=== PATIENT | male | born 1945 | race African-American/Black ===

== ENCOUNTER 2017-06-06 22:05 | Inpatient (IN) | payer OTHER ==
[2017-06-06 22:28] VITALS: BMI 24.1
--- NOTE | 2017-06-06 22:28 | HP ---
COWS - Scale Resting Pulse: 0= [place] 80 or Below Sweatin= Chills/Flushing Restless Observation: 5= Unable to Sit Still Pupil Size: 0= Normal to Room Light Bone or Joint Aches: 4=Acute Joint/Muscle Pain Runny Nose/ Eye Tearin= Nasal Congestion GI Upset > 30mins: 1= Stomach Cramp Tremor Observation: 2= Slight Tremor Visible Yawning Observation: 0= None Anxiety or Irritability: 2=Irritable/Anxious Goose Flesh Skin: 0=Smooth Skin COWS Score: 16 CIWA Score - CIWA Score Nausea/Vomitin Muscle Tremors: 4-Moderate,w/Arms Extend Anxiety: 4-Mod. Anxious/Guarded Agitation: 4-Moderately Restless Paroxysmal Sweats: 1-Minimal Palms Moist Orientation: 1-Uncertain about Date Tacttile Disturbances: 0-None Auditory Disturbances: 0-None Visual Disturbances: 0-None Headache: 0-None Present CIWA-Ar Total Score: 17 Admission ROS [facility] - HPI Chief Complaint: C/O WITHDRAWAL SX'S FROM HEROIN AND ALCOHOL. SEEKING DETOX TXMENT Allergies/Adverse Reactions: Allergies Allergy/AdvReac Type Severity Reaction Status Date / Time No Known Allergies Allergy Verified 06/07/17 00:14 History of Present Illness: 71 Y.O. MALE WITH LONG HX/O OPIOID AND ALCOHOL DEPENDENCE ADMITTED TO DETOX. CLIENT IS KNOWN TO THIS PROGRAM. LAST HERE APPROX 2 YEARS AGO. SELF REFERRED. DENIES LEGAL ISSUES. REPORTS LONGEST CLEAN TIE 2 YEARS. Exam Limitations: Other (AMBULATES WITH CANE 2/2 R KNEE PAIN) - Ebola screening Have you traveled outside of the country in the last 21 days: No Have you had contact with anyone from an Ebola affected area: No Have you been sick,other than usual withdrawal symptoms: No Do you have a fever: No - Review of Systems Constitutional: Chills, Loss of Appetite, Malaise, Night Sweats, Changes in sleep EENT: reports: Dental Problems (MISSING TEETH) Respiratory: reports: No Symptoms reported Cardiac: reports: No Symptoms Reported GI: reports: Diarrhea, Nausea, Poor Appetite, Abdominal cramping : reports: No Symptoms Reported Musculoskeletal: reports: Joint Pain (L EFT KNEE), Muscle Pain Integumentary: reports: Other (C/O SKIN ABRASION/TEAR TO PENIS FROM ZIPPER) Neuro: reports: No Symptoms reported Endocrine: reports: No Symptoms Reported Hematology: reports: No Symptoms Reported Psychiatric: reports: Anxious, Depressed (DENIES SI/HI) Other Systems: Reviewed and Negative Patient History - Patient Medical History Hx Anemia: No Hx Asthma: No Hx Chronic Obstructive Pulmonary Disease (COPD): No Hx Cancer: No Hx Cardiac Disorders: No Hx Congestive Heart Failure: No Hx Hypertension: No Hx Hypercholesterolemia: No Hx Pacemaker: No HX Cerebrovascular Accident: No Hx Seizures: No Hx Dementia: No Hx Diabetes: No Hx Gastrointestinal Disorders: No Hx Liver Disease: No Hx Genitourinary Disorders: No Hx Sexually Transmitted Disorders: No Hx Renal Disease (ESRD): No Hx Thyroid Disease: No Hx Human Immunodeficiency Virus (HIV): No Hx Hepatitis C: Yes (TX'ED) Hx Depression: No Hx Suicide Attempt: No Hx Bipolar Disorder: No Hx Schizophrenia: No Other Medical History: R KNEE PAIN - Patient Surgical History Past Surgical History: Yes Hx Neurologic Surgery: No Hx Cataract Extraction: No Hx Cardiac Surgery: No Hx Lung Surgery: No Hx Breast Surgery: No Hx Breast Biopsy: No Hx Abdominal Surgery: No Hx Appendectomy: No Hx Cholecystectomy: No Hx Genitourinary Surgery: No Hx Section: No Hx Orthopedic Surgery: No Other Surgical History: Pt had R inguinal hernia repair in 2008, Sx of chest for infection in 2009. Anesthesia Reaction: No - PPD History Previous Implant?: Yes Documented Results: Negative w/o proof Implanted On Prior [facility] Admission?: No Results: positive PPD to be Administered?: No - Smoking Cessation Smoking history: Current every day smoker Have you smoked in the past 12 months: Yes Aproximately how many cigarettes per day: 20 Cigars Per Day: 0 Hx Chewing Tobacco Use: No Initiated information on smoking cessation: Yes 'Breaking Loose' booklet given: 06/06/17 - Substance & Tx. History Hx Alcohol Use: Yes Hx Substance Use: Yes Substance Use Type: Alcohol, Cocaine, Heroin Hx Substance Use Treatment: Yes ([facility]) - Substances Abused HEROIN Route: Inhalation Frequency: Daily Amount used: 10 BAGS Age of first use: 15 Date of Last Use: 06/06/17 COCAINE Route: Smoking Frequency: 3-6 times per week Amount used: 1/2 GRM Age of first use: 31 Date of Last Use: 06/04/17 VODKA Route: Oral Frequency: 3-6 times per week Amount used: 1/2 PINT Age of first use: 15 Date of Last Use: 06/05/17 Family Disease History - Family Disease History Family History: Unremarkable Admission Physical Exam [facility] - Physical General Appearance: Yes: Appropriately Dressed, Disheveled, Mild Distress, Tremorous, Anxious, Other (SOLIED CLOTHING) HEENTM: Yes: EOMI, Normocephalic, MARGARITA, Pharynx Normal, Nasal Congestion, Other (MISSING TEETH) Respiratory: Yes: Chest Non-Tender, Lungs Clear, Decreased Breath Sounds, No Respiratory Distress, No Accessory Muscle Use Neck: Yes: No masses,lesions,Nodules, Supple, Trachea in good position Breast: Yes: Breast Exam Deferred Cardiology: Yes: Regular Rhythm, Regular Rate Abdominal: Yes: Normal Bowel Sounds, Non Tender, Soft, Hernia (UMBILICAL) Genitourinary: Yes: Within Normal Limits Back: Yes: Normal Inspection Musculoskeletal: Yes: full range of Motion, Gait Steady, Other (AMBULATES WITH CANE) Extremities: Yes: Normal Range of Motion, Non-Tender, Tremors Neurological: Yes: Alert, Motor Strength 5/5, Other (APEARS FORGETFUL) Integumentary: Yes: Normal Color, Dry, Warm, Pitting Edema (2+ TO BLE), Other ( EXTREMELY DRY FLAKY SKIN) Lymphatic: Yes: Within Normal Limits - Diagnostic (1) Opioid dependence with withdrawal Current Visit: No Status: Chronic (2) Nicotine dependence Current Visit: No Status: Chronic Qualifiers: Nicotine product type: cigarettes Substance use status: uncomplicated Qualified Code(s): F17.210 - Nicotine dependence, cigarettes, uncomplicated (3) Alcohol dependence with uncomplicated withdrawal Current Visit: No Status: Chronic Cleared for Admission [facility] - Detox or Rehab [facility] Level of Care: Medically Managed Detox Regimen/Protocol: Methadone/Librium [facility] Breath Alcohol Content Breath Alcohol Content: 0
[2017-06-06] MEDS ORDERED: MAGNESIUM HYDROX 2400MG/30ML ORAL SUSPENSION 30 ML CUP PO PRN (22:41)
[2017-06-06] MEDS ORDERED: MAGNESIUM CITRATE 300 ML BOTTLE PO PRN (22:41)
[2017-06-06] MEDS ORDERED: guaiFENesin/D-METHORPHAN HB 10 ML UNIT-DOSE CUPS PO PRN (22:41)
[2017-06-06] MEDS ORDERED: chlordiazePOXIDE HCL 25 MG CAPSULE PO PRN (22:41)
[2017-06-06] MEDS ORDERED: ACETAMINOPHEN 325 MG TABLET (FP) PO PRN (22:41)
[2017-06-06] MEDS ORDERED: METHADONE HCL 10 MG TABLET (FOR DETOX USE ONLY) PO ONE ×2 (22:41→23:00)
[2017-06-06] MEDS ORDERED: MENTHOL/PHENOL 1 EACH UD MM PRN (22:41)
[2017-06-06] MEDS ORDERED: MAG HYDROX/AL HYDROX/SIMETH 30 ML UNIT-DOSE CUP PO PRN (22:41)
[2017-06-06] MEDS ORDERED: IBUPROFEN 400 MG TABLET (FP) PO PRN (22:41)
[2017-06-06] MEDS ORDERED: LOPERAMIDE HCL 2 MG CAPSULE PO PRN (22:41)
[2017-06-06] MEDS ORDERED: NICOTINE POLACRILEX 2 MG GUM BC PRN (22:41)
[2017-06-06] MEDS ORDERED: hydrOXYzine PAMOATE 50 MG CAPSULE (FP) PO PRN (22:41)
[2017-06-06] MEDS ORDERED: P-EPHED 60MG/TRIPROLIDI 2.5MG TABLET PO PRN (22:41)
[2017-06-06] MEDS ORDERED: ALBUTEROL SO4 2.5/IPRATROPIUM 0.5 INH SOL 3 ML VIAL.NEB. NEB PRN (22:43)
[2017-06-06] MEDS ORDERED: chlordiazePOXIDE HCL 25 MG CAPSULE PO SCH (23:00)
[2017-06-06] MEDS ORDERED: AMMONIUM LACTATE 12% LOTION 225 GM BOTTLE TP PRN (23:15)
[2017-06-07] MEDS ORDERED: METHADONE HCL 10 MG TABLET (FOR DETOX USE ONLY) PO ONE ×3 (00:16→23:00)
[2017-06-07] MEDS ORDERED: chlordiazePOXIDE HCL 25 MG CAPSULE PO SCH ×2 (01:15→23:00)
[2017-06-07] MEDS: chlordiazePOXIDE HCL 25 MG CAPSULE PO SCH ×4 (04:08→17:28)
[2017-06-07] MEDS ORDERED: METHADONE HCL 10 MG TABLET (FOR DETOX USE ONLY) PO SCH (10:00)
[2017-06-07 10:20] LABS: HEMATOCRIT 35.8 % (35.4-49); HEMOGLOBIN 11.4 GM/dL (11.7-16.9); MCH 29.1 pg (25.7-33.7); MCHC 31.9 g/dl (32.0-35.9); MEAN CELL VOLUME 91.3 fl (80-96); MEAN PLT VOLUME 10.7 fl (7.5-11.1); PLATELET COUNT 234 K/MM3 (134-434); RBC 3.92 M/mm3 (4.00-5.60); RDW 13.8 % (11.9-15.9); WHITE BLOOD COUNT 6.5 K/mm3 (4.0-10.0)
[2017-06-07 10:25] LABS: ALBUMIN 3.1 g/dl (3.4-5.0); ANION GAP 5 (8-16); BLOOD UREA NITROGEN 16 mg/dL (7-18); CALCIUM 8.2 mg/dL (8.5-10.1); CHLORIDE 108 mmol/L (98-107); CO2 29 mmol/L (21-32); GLUCOSE,RANDOM 112 mg/dL (74-106); POTASSIUM 4.4 mmol/L (3.5-5.1); SODIUM 142 mmol/L (136-145)
[2017-06-07] MEDS: PRENATAL VITAMINS W/ FOLIC ACID TABLET (FP) PO SCH (10:25)
[2017-06-07] MEDS: BACITRACIN 0.9 GM PACKET TP SCH (10:25)
[2017-06-07 10:29] LABS: ALK PHOS 127 U/L (45-117); BILIRUBIN,TOTAL 0.3 mg/dL (0.2-1.0); CREATININE 1.4 mg/dL (0.7-1.3); SGOT/AST 35 U/L (15-37); SGPT/ALT 39 U/L (12-78)
[2017-06-07] MEDS: NICOTINE 21 MG/24 HOURS TOPICAL PATCH TD SCH (10:29)
[2017-06-07] MEDS ORDERED: PNEUMOC 13-VAL CONJ-DIP CRM/PF 0.5 ML DISP.SYRIN IM ONE (12:00)
[2017-06-07] MEDS ORDERED: PNEUMOCOCCAL 23 VACCINE 0.5 ML VIAL IM ONE (12:00)
--- NOTE | 2017-06-07 12:03 | CONSULT ---
[facility] Psychiatric Consult - Data Date of interview: 06/07/17 Admission source: [facility] Identifying data: Pt. is a 71 year old male, single, father of four, unemployed , homeless and on disability. This is one of multiple admissions for patient. Pt. admitted to for opiate, cocaine, and alcohol dependence. Substance Abuse History: Following information confirmed with Mr. Galvan: Smoking Cessation. Smoking history: Current every day smoker. Have you smoked in the past 12 months: Yes. Aproximately how many cigarettes per day: 20. Cigars Per Day: 0. Hx Chewing Tobacco Use: No. Initiated information on smoking cessation: Yes. 'Breaking Loose' booklet given: 06/06/17. - Substance & Tx. History. Hx Alcohol Use: Yes. Hx Substance Use: Yes. Substance Use Type : Alcohol, Cocaine, Heroin. Hx Substance Use Treatment: Yes ([facility] - Substances Abused. HEROIN. Route: Inhalation. Frequency: Daily. Amount used: 10 BAGS. Age of first use: 15. Date of Last Use: 06/06/17. COCAINE. Route: Smoking. Frequency: 3-6 times per week. Amount used: 1/2 GRM. Age of first use: 31. Date of Last Use: 06/04/17. VODKA. Route: Oral. Frequency: 3-6 times per week. Amount used: 1/2 PINT. Age of first use: 15. Date of Last Use: 06/05/17 Medical History: Pt had R inguinal hernia repair in 2008, Sx of chest for infection in 2009, Hep C Psychiatric History: Pt. denies h/o psychiatric hospitalizations, OPC, and suicide attempts. Physical/Sexual Abuse/Trauma History: Denies. Mental Status Exam - Mental Status Exam Alert and Oriented to: Time, Place, Person Cognitive Function: Good Patient Appearance: Well Groomed Mood: Hopeful Affect: Normal Range Patient Behavior: Appropriate, Cooperative Speech Pattern: Appropriate Voice Loudness: Normal Thought Process: Goal Oriented Thought Disorder: Not Present Hallucinations: Denies Suicidal Ideation: Denies Homicidal Ideation: Denies Insight/Judgement: Poor Sleep: Fair Appetite: Good Muscle strength/Tone: Normal Gait/Station: Other (Pt. uses an cane to ambulate.) Psychiatric Findings - Problem List ([place] 1, 2,3) (1) Alcohol dependence with uncomplicated withdrawal Current Visit: Yes Status: Acute (2) Opioid dependence with withdrawal Current Visit: Yes Status: Acute (3) Insomnia Current Visit: Yes Status: Acute - Initial Treatment Plan Initial Treatment Plan: Psychoeducation provided. Detoxification in progress. Ambien 5mg qhs ordered for insomnia. Pt. reports favorable effect from previously taking ambien. Benefits and side effects (sleep walking) discussed. Will continue to monitor.
--- NOTE | 2017-06-07 12:05 | PN ---
[facility] CIWA - CIWA Score Nausea/Vomitin-No Nausea/No Vomiting Muscle Tremors: 4-Moderate,w/Arms Extend Anxiety: 4-Mod. Anxious/Guarded Agitation: 4-Moderately Restless Paroxysmal Sweats: 1-Minimal Palms Moist Orientation: 0-Oriented Tacttile Disturbances: 3-Moderate Itch/Numb/Burn Auditory Disturbances: 0-None Visual Disturbances: 0-None Headache: 0-None Present CIWA-Ar Total Score: 16 S COWS - Scale Resting Pulse: 1= [place] 81-100 Sweatin= Chills/Flushing Restless Observation: 3= Extraneous Movement Pupil Size: 0= Normal to Room Light Bone or Joint Aches: 4=Acute Joint/Muscle Pain Runny Nose/ Eye Tearin= Nasal Congestion GI Upset > 30mins: 0= None Tremor Observation of Outstretched Hands: 1= Tremor Harper, Not Seen Yawning Observation: 1= 1-2x During Session Anxiety or Irritability: 2=Irritable/Anxious Goose Flesh Skin: 0=Smooth Skin COWS Score: 14 [facility] Progress Note (SOAP) Subjective: ANXIETY,SWEATS,FATIGUE. Objective: 06/07/17 12:05 Vital Signs Temperature 97.8 F 06/07/17 09:46 Pulse Rate 82 06/07/17 09:46 Respiratory Rate 18 06/07/17 09:46 Blood Pressure 152/87 06/07/17 09:46 O2 Sat by Pulse Oximetry (%) Laboratory Last Values WBC 6.5 K/mm3 (4.0-10.0) 06/07/17 07:00 RBC 3.92 M/mm3 (4.00-5.60) L 06/07/17 07:00 Hgb 11.4 GM/dL (11.7-16.9) L 06/07/17 07:00 Hct 35.8 % (35.4-49) 06/07/17 07:00 MCV 91.3 fl (80-96) 06/07/17 07:00 MCH 29.1 pg (25.7-33.7) 06/07/17 07:00 MCHC 31.9 g/dl (32.0-35.9) L 06/07/17 07:00 RDW 13.8 % (11.9-15.9) 06/07/17 07:00 Plt Count 234 K/MM3 (134-434) 06/07/17 07:00 MPV 10.7 fl (7.5-11.1) D 06/07/17 07:00 Sodium 142 mmol/L (136-145) 06/07/17 07:00 Potassium 4.4 mmol/L (3.5-5.1) 06/07/17 07:00 Chloride 108 mmol/L (98-107) H 06/07/17 07:00 Carbon Dioxide 29 mmol/L (21-32) 06/07/17 07:00 Anion Gap 5 (8-16) L 06/07/17 07:00 BUN 16 mg/dL (7-18) D 06/07/17 07:00 Creatinine 1.4 mg/dL (0.7-1.3) H 06/07/17 07:00 Creat Clearance w eGFR 50.10 (>60) 06/07/17 07:00 Random Glucose 112 mg/dL (74-106) H D 06/07/17 07:00 Calcium 8.2 mg/dL (8.5-10.1) L 06/07/17 07:00 Total Bilirubin 0.3 mg/dL (0.2-1.0) D 06/07/17 07:00 AST 35 U/L (15-37) D 06/07/17 07:00 ALT 39 U/L (12-78) 06/07/17 07:00 Alkaline Phosphatase 127 U/L (45-117) H D 06/07/17 07:00 Total Protein 7.0 g/dl (6.4-8.2) 06/07/17 07:00 Albumin 3.1 g/dl (3.4-5.0) L 06/07/17 07:00 HIV 1&2 Antibody Screen Negative 06/07/17 07:00 HIV P24 Antigen Negative 06/07/17 07:00 Assessment: 06/07/17 12:05 WITHDRAWALS SX Plan: CONTINUE DETOX
--- NOTE | 2017-06-07 15:10 | EKG ---
Test Reason : Blood Pressure : / mmHG Vent. Rate : 068 BPM Atrial Rate : 068 BPM P-R Int : 122 ms QRS Dur : 068 ms QT Int : 386 ms P-R-T Axes : 042 029 050 degrees QTc Int : 410 ms SINUS RHYTHM WITH PREMATURE ATRIAL COMPLEXES POSSIBLE LEFT ATRIAL ENLARGEMENT BORDERLINE ECG NO PREVIOUS ECGS AVAILABLE Confirmed by Olman Velazquez ([id number]) on 06/07/2017 3:10:12 PM Referred By: Rodrick Sood Confirmed By:Olman Velazquez
--- NOTE | 2017-06-07 21:56 | EKG ---
Test Reason : Blood Pressure : / mmHG Vent. Rate : 081 BPM Atrial Rate : 081 BPM P-R Int : 136 ms QRS Dur : 076 ms QT Int : 386 ms P-R-T Axes : 041 020 041 degrees QTc Int : 448 ms NORMAL SINUS RHYTHM NORMAL ECG WHEN COMPARED WITH ECG OF 07-JUN-2017 00:56, PREMATURE ATRIAL COMPLEXES ARE NO LONGER PRESENT VENT. RATE HAS INCREASED Confirmed by NELSON BROWN, JOIE ([id number]) on 06/07/2017 9:56:09 PM Referred By: Rodrick Sood Confirmed By:JOIE DAMON MD
[2017-06-07] MEDS: THIAMINE HCL 100 MG TABLET (FP) PO SCH (22:25)
[2017-06-07] MEDS: chlordiazePOXIDE 5 MG CAPSULE PO SCH (22:25)
[2017-06-08] MEDS: chlordiazePOXIDE 5 MG CAPSULE PO SCH ×3 (05:25→17:38)
[2017-06-08] MEDS ORDERED: METHADONE HCL 10 MG TABLET (FOR DETOX USE ONLY) PO ONE (10:00)
[2017-06-08] MEDS ORDERED: METHADONE HCL 5 MG TABLET (FOR DETOX USE ONLY) PO SCH (10:00)
[2017-06-08] MEDS: NICOTINE 21 MG/24 HOURS TOPICAL PATCH TD SCH (10:41)
[2017-06-08] MEDS: PRENATAL VITAMINS W/ FOLIC ACID TABLET (FP) PO SCH (10:41)
[2017-06-08] MEDS: BACITRACIN 0.9 GM PACKET TP SCH (10:41)
--- NOTE | 2017-06-08 11:17 | PN ---
[facility] CIWA - CIWA Score Nausea/Vomitin-No Nausea/No Vomiting Muscle Tremors: 4-Moderate,w/Arms Extend Anxiety: 4-Mod. Anxious/Guarded Agitation: 4-Moderately Restless Paroxysmal Sweats: 1-Minimal Palms Moist Orientation: 0-Oriented Tacttile Disturbances: 3-Moderate Itch/Numb/Burn Auditory Disturbances: 0-None Visual Disturbances: 0-None Headache: 0-None Present CIWA-Ar Total Score: 16 S COWS - Scale Resting Pulse: 0= [place] 80 or Below Sweatin= Chills/Flushing Restless Observation: 3= Extraneous Movement Pupil Size: 2= Moderately Dilated Bone or Joint Aches: 1= Mild Discomfort Runny Nose/ Eye Tearin= Nasal Congestion GI Upset > 30mins: 0= None Tremor Observation of Outstretched Hands: 2= Slight Tremor Visible Yawning Observation: 1= 1-2x During Session Anxiety or Irritability: 1=Feels Anxious/Irritable Goose Flesh Skin: 0=Smooth Skin COWS Score: 12 S Progress Note (SOAP) Subjective: ANXIETY,SWEATS,CHILLS,TREMORS,FATIGUE. Objective: 06/08/17 11:16 Vital Signs Temperature 97.3 F L 06/08/17 09:09 Pulse Rate 69 06/08/17 09:09 Respiratory Rate 18 06/08/17 09:09 Blood Pressure 127/89 06/08/17 09:09 O2 Sat by Pulse Oximetry (%) Laboratory Last Values WBC 6.5 K/mm3 (4.0-10.0) 06/07/17 07:00 RBC 3.92 M/mm3 (4.00-5.60) L 06/07/17 07:00 Hgb 11.4 GM/dL (11.7-16.9) L 06/07/17 07:00 Hct 35.8 % (35.4-49) 06/07/17 07:00 MCV 91.3 fl (80-96) 06/07/17 07:00 MCH 29.1 pg (25.7-33.7) 06/07/17 07:00 MCHC 31.9 g/dl (32.0-35.9) L 06/07/17 07:00 RDW 13.8 % (11.9-15.9) 06/07/17 07:00 Plt Count 234 K/MM3 (134-434) 06/07/17 07:00 MPV 10.7 fl (7.5-11.1) D 06/07/17 07:00 Sodium 142 mmol/L (136-145) 06/07/17 07:00 Potassium 4.4 mmol/L (3.5-5.1) 06/07/17 07:00 Chloride 108 mmol/L (98-107) H 06/07/17 07:00 Carbon Dioxide 29 mmol/L (21-32) 06/07/17 07:00 Anion Gap 5 (8-16) L 06/07/17 07:00 BUN 16 mg/dL (7-18) D 06/07/17 07:00 Creatinine 1.4 mg/dL (0.7-1.3) H 06/07/17 07:00 Creat Clearance w eGFR 50.10 (>60) 06/07/17 07:00 Random Glucose 112 mg/dL (74-106) H D 06/07/17 07:00 Calcium 8.2 mg/dL (8.5-10.1) L 06/07/17 07:00 Total Bilirubin 0.3 mg/dL (0.2-1.0) D 06/07/17 07:00 AST 35 U/L (15-37) D 06/07/17 07:00 ALT 39 U/L (12-78) 06/07/17 07:00 Alkaline Phosphatase 127 U/L (45-117) H D 06/07/17 07:00 Total Protein 7.0 g/dl (6.4-8.2) 06/07/17 07:00 Albumin 3.1 g/dl (3.4-5.0) L 06/07/17 07:00 RPR Titer Nonreactive (NONREACTIVE) 06/07/17 07:00 HIV 1&2 Antibody Screen Negative 06/07/17 07:00 HIV P24 Antigen Negative 06/07/17 07:00 UA PENDING Assessment: 06/08/17 11:16 WITHDRAWAL SX Plan: CONTINUE DETOX INCREASE PO FLUIDS.
[2017-06-08] MEDS ORDERED: FLU VACCINE QUAD 60 MCG/0.5 ML (MDV 17-18) IM ONE (12:00)
[2017-06-08] MEDS: chlordiazePOXIDE HCL 10 MG CAPSULE PO SCH (22:22)
[2017-06-08] MEDS: THIAMINE HCL 100 MG TABLET (FP) PO SCH (22:22)
[2017-06-08] MEDS: ZOLPIDEM TARTRATE 5 MG TABLET PO PRN (22:22)
[2017-06-09] MEDS: chlordiazePOXIDE HCL 10 MG CAPSULE PO SCH ×3 (05:44→17:14)
[2017-06-09] MEDS ORDERED: METHADONE HCL 5 MG TABLET (FOR DETOX USE ONLY) PO ONE (10:00)
[2017-06-09] MEDS: BACITRACIN 0.9 GM PACKET TP SCH (10:31)
[2017-06-09] MEDS: PRENATAL VITAMINS W/ FOLIC ACID TABLET (FP) PO SCH (10:31)
[2017-06-09] MEDS: NICOTINE 21 MG/24 HOURS TOPICAL PATCH TD SCH (10:31)
--- NOTE | 2017-06-09 12:26 | PN ---
[facility] Progress Note (SOAP) Subjective: ANXIETY,SWEATS,BACK AND LEG PAINS,FATIGUE. Objective: 06/09/17 12:24 Vital Signs Temperature 98.2 F 06/09/17 06:17 Pulse Rate 67 06/09/17 06:17 Respiratory Rate 18 06/09/17 06:17 Blood Pressure 138/63 06/09/17 06:17 O2 Sat by Pulse Oximetry (%) Laboratory Last Values WBC 6.5 K/mm3 (4.0-10.0) 06/07/17 07:00 RBC 3.92 M/mm3 (4.00-5.60) L 06/07/17 07:00 Hgb 11.4 GM/dL (11.7-16.9) L 06/07/17 07:00 Hct 35.8 % (35.4-49) 06/07/17 07:00 MCV 91.3 fl (80-96) 06/07/17 07:00 MCH 29.1 pg (25.7-33.7) 06/07/17 07:00 MCHC 31.9 g/dl (32.0-35.9) L 06/07/17 07:00 RDW 13.8 % (11.9-15.9) 06/07/17 07:00 Plt Count 234 K/MM3 (134-434) 06/07/17 07:00 MPV 10.7 fl (7.5-11.1) D 06/07/17 07:00 Sodium 142 mmol/L (136-145) 06/07/17 07:00 Potassium 4.4 mmol/L (3.5-5.1) 06/07/17 07:00 Chloride 108 mmol/L (98-107) H 06/07/17 07:00 Carbon Dioxide 29 mmol/L (21-32) 06/07/17 07:00 Anion Gap 5 (8-16) L 06/07/17 07:00 BUN 16 mg/dL (7-18) D 06/07/17 07:00 Creatinine 1.4 mg/dL (0.7-1.3) H 06/07/17 07:00 Creat Clearance w eGFR 50.10 (>60) 06/07/17 07:00 Random Glucose 112 mg/dL (74-106) H D 06/07/17 07:00 Calcium 8.2 mg/dL (8.5-10.1) L 06/07/17 07:00 Total Bilirubin 0.3 mg/dL (0.2-1.0) D 06/07/17 07:00 AST 35 U/L (15-37) D 06/07/17 07:00 ALT 39 U/L (12-78) 06/07/17 07:00 Alkaline Phosphatase 127 U/L (45-117) H D 06/07/17 07:00 Total Protein 7.0 g/dl (6.4-8.2) 06/07/17 07:00 Albumin 3.1 g/dl (3.4-5.0) L 06/07/17 07:00 RPR Titer Nonreactive (NONREACTIVE) 06/07/17 07:00 HIV 1&2 Antibody Screen Negative 06/07/17 07:00 HIV P24 Antigen Negative 06/07/17 07:00 LABS NOTED. UA PENDING Assessment: 06/09/17 12:25 WITHDRAWAL SX Plan: CONTINUE DETOX
[2017-06-09] MEDS: LIDOCAINE 5% TOPICAL PATCH TP SCH (14:30)
[2017-06-09] MEDS: THIAMINE HCL 100 MG TABLET (FP) PO SCH (22:16)
[2017-06-09] MEDS: ZOLPIDEM TARTRATE 5 MG TABLET PO PRN (23:10)
[2017-06-09] MEDS: LIDOCAINE PATCH REMOVAL MC SCH (23:10)
[2017-06-10] MEDS ORDERED: METHADONE HCL 10 MG TABLET (FOR DETOX USE ONLY) PO SCH (10:00)
[2017-06-10] MEDS ORDERED: METHADONE HCL 5 MG TABLET (FOR DETOX USE ONLY) PO ONE (10:00)
[2017-06-10] MEDS: PRENATAL VITAMINS W/ FOLIC ACID TABLET (FP) PO SCH (10:17)
[2017-06-10] MEDS: BACITRACIN 0.9 GM PACKET TP SCH (10:17)
[2017-06-10] MEDS: NICOTINE 21 MG/24 HOURS TOPICAL PATCH TD SCH (10:18)
[2017-06-10] MEDS: LIDOCAINE 5% TOPICAL PATCH TP SCH (10:18)
--- NOTE | 2017-06-10 10:40 | PN ---
[facility] Progress Note (SOAP) Subjective: ANXIETY,CHRONIC BACK PAIN,FATIGUE. Objective: 06/10/17 10:40 Vital Signs Temperature 96.4 F L 06/10/17 10:25 Pulse Rate 87 06/10/17 10:25 Respiratory Rate 18 06/10/17 10:25 Blood Pressure 130/85 06/10/17 10:25 O2 Sat by Pulse Oximetry (%) Laboratory Last Values WBC 6.5 K/mm3 (4.0-10.0) 06/07/17 07:00 RBC 3.92 M/mm3 (4.00-5.60) L 06/07/17 07:00 Hgb 11.4 GM/dL (11.7-16.9) L 06/07/17 07:00 Hct 35.8 % (35.4-49) 06/07/17 07:00 MCV 91.3 fl (80-96) 06/07/17 07:00 MCH 29.1 pg (25.7-33.7) 06/07/17 07:00 MCHC 31.9 g/dl (32.0-35.9) L 06/07/17 07:00 RDW 13.8 % (11.9-15.9) 06/07/17 07:00 Plt Count 234 K/MM3 (134-434) 06/07/17 07:00 MPV 10.7 fl (7.5-11.1) D 06/07/17 07:00 Sodium 142 mmol/L (136-145) 06/07/17 07:00 Potassium 4.4 mmol/L (3.5-5.1) 06/07/17 07:00 Chloride 108 mmol/L (98-107) H 06/07/17 07:00 Carbon Dioxide 29 mmol/L (21-32) 06/07/17 07:00 Anion Gap 5 (8-16) L 06/07/17 07:00 BUN 16 mg/dL (7-18) D 06/07/17 07:00 Creatinine 1.4 mg/dL (0.7-1.3) H 06/07/17 07:00 Creat Clearance w eGFR 50.10 (>60) 06/07/17 07:00 Random Glucose 112 mg/dL (74-106) H D 06/07/17 07:00 Calcium 8.2 mg/dL (8.5-10.1) L 06/07/17 07:00 Total Bilirubin 0.3 mg/dL (0.2-1.0) D 06/07/17 07:00 AST 35 U/L (15-37) D 06/07/17 07:00 ALT 39 U/L (12-78) 06/07/17 07:00 Alkaline Phosphatase 127 U/L (45-117) H D 06/07/17 07:00 Total Protein 7.0 g/dl (6.4-8.2) 06/07/17 07:00 Albumin 3.1 g/dl (3.4-5.0) L 06/07/17 07:00 RPR Titer Nonreactive (NONREACTIVE) 06/07/17 07:00 HIV 1&2 Antibody Screen Negative 06/07/17 07:00 HIV P24 Antigen Negative 06/07/17 07:00 UA STILL PENDING Assessment: 06/10/17 10:40 WITHDRAWAL SX Plan: CONTINUE DETOX
[2017-06-10 16:53] LABS: URINE APPEARANCE CLEAR; URINE BILIRUBIN NEGATIVE (NEGATIVE); URINE BLOOD NEGATIVE (NEGATIVE); URINE COLOR LTYELLOW; URINE GLUCOSE (UA) NEGATIVE (NEGATIVE); URINE KETONE NEGATIVE (NEGATIVE); URINE LEUK ESTERASE NEGATIVE (NEGATIVE); URINE NITRITE NEGATIVE (NEGATIVE); URINE PROTEIN NEGATIVE (NEGATIVE)
[2017-06-10] MEDS: ZOLPIDEM TARTRATE 5 MG TABLET PO PRN (21:53)
[2017-06-10] MEDS: LIDOCAINE PATCH REMOVAL MC SCH (22:22)
[2017-06-10] MEDS: THIAMINE HCL 100 MG TABLET (FP) PO SCH (22:23)
[2017-06-11] MEDS ORDERED: METHADONE HCL 5 MG TABLET (FOR DETOX USE ONLY) PO SCH (06:00)
[2017-06-11] MEDS ORDERED: METHADONE HCL 10 MG TABLET (FOR DETOX USE ONLY) PO ONE (10:00)
[2017-06-11] MEDS: PRENATAL VITAMINS W/ FOLIC ACID TABLET (FP) PO SCH (10:14)
[2017-06-11] MEDS: NICOTINE 21 MG/24 HOURS TOPICAL PATCH TD SCH (10:14)
[2017-06-11] MEDS: BACITRACIN 0.9 GM PACKET TP SCH (10:14)
[2017-06-11] MEDS: LIDOCAINE 5% TOPICAL PATCH TP SCH (10:14)
--- NOTE | 2017-06-11 10:42 | PN ---
[facility] Progress Note (SOAP) Subjective: ANXIETY,SWEATS/CHILLS,FATIGUE. OOB BUT AMBULATES SLOWLY DUE TO CHRONIC BACKACHE. Objective: 06/11/17 10:41 Vital Signs Temperature 97.1 F L 06/11/17 09:51 Pulse Rate 71 06/11/17 09:51 Respiratory Rate 20 06/11/17 09:51 Blood Pressure 144/81 06/11/17 09:51 O2 Sat by Pulse Oximetry (%) Laboratory Last Values WBC 6.5 K/mm3 (4.0-10.0) 06/07/17 07:00 RBC 3.92 M/mm3 (4.00-5.60) L 06/07/17 07:00 Hgb 11.4 GM/dL (11.7-16.9) L 06/07/17 07:00 Hct 35.8 % (35.4-49) 06/07/17 07:00 MCV 91.3 fl (80-96) 06/07/17 07:00 MCH 29.1 pg (25.7-33.7) 06/07/17 07:00 MCHC 31.9 g/dl (32.0-35.9) L 06/07/17 07:00 RDW 13.8 % (11.9-15.9) 06/07/17 07:00 Plt Count 234 K/MM3 (134-434) 06/07/17 07:00 MPV 10.7 fl (7.5-11.1) D 06/07/17 07:00 Sodium 142 mmol/L (136-145) 06/07/17 07:00 Potassium 4.4 mmol/L (3.5-5.1) 06/07/17 07:00 Chloride 108 mmol/L (98-107) H 06/07/17 07:00 Carbon Dioxide 29 mmol/L (21-32) 06/07/17 07:00 Anion Gap 5 (8-16) L 06/07/17 07:00 BUN 16 mg/dL (7-18) D 06/07/17 07:00 Creatinine 1.4 mg/dL (0.7-1.3) H 06/07/17 07:00 Creat Clearance w eGFR 50.10 (>60) 06/07/17 07:00 Random Glucose 112 mg/dL (74-106) H D 06/07/17 07:00 Calcium 8.2 mg/dL (8.5-10.1) L 06/07/17 07:00 Total Bilirubin 0.3 mg/dL (0.2-1.0) D 06/07/17 07:00 AST 35 U/L (15-37) D 06/07/17 07:00 ALT 39 U/L (12-78) 06/07/17 07:00 Alkaline Phosphatase 127 U/L (45-117) H D 06/07/17 07:00 Total Protein 7.0 g/dl (6.4-8.2) 06/07/17 07:00 Albumin 3.1 g/dl (3.4-5.0) L 06/07/17 07:00 Urine Color Ltyellow 06/10/17 15:00 Urine Appearance Clear 06/10/17 15:00 Urine pH 7.0 (5.0-8.0) D 06/10/17 15:00 Ur Specific [place] 1.013 (1.001-1.035) 06/10/17 15:00 Urine Protein Negative (NEGATIVE) 06/10/17 15:00 Urine Glucose (UA) Negative (NEGATIVE) 06/10/17 15:00 Urine Ketones Negative (NEGATIVE) 06/10/17 15:00 Urine Blood Negative (NEGATIVE) 06/10/17 15:00 Urine Nitrite Negative (NEGATIVE) 06/10/17 15:00 Urine Bilirubin Negative (NEGATIVE) 06/10/17 15:00 Urine Urobilinogen 2.0 mg/dL (0.2-1.0) 06/10/17 15:00 Ur Leukocyte Esterase Negative (NEGATIVE) 06/10/17 15:00 RPR Titer Nonreactive (NONREACTIVE) 06/07/17 07:00 HIV 1&2 Antibody Screen Negative 06/07/17 07:00 HIV P24 Antigen Negative 06/07/17 07:00 Assessment: 06/11/17 10:42 WITHDRAWAL SX Plan: CONTINUE DETOX
[2017-06-11] MEDS: THIAMINE HCL 100 MG TABLET (FP) PO SCH (22:46)
[2017-06-11] MEDS: LIDOCAINE PATCH REMOVAL MC SCH (22:46)
[2017-06-12] MEDS ORDERED: METHADONE HCL 5 MG TABLET (FOR DETOX USE ONLY) PO ONE (06:00)
[2017-06-12 06:52] VITALS: BP 110/73; PULSE 64; TEMP 98.3
--- NOTE | 2017-06-12 21:01 | DS ---
[facility] Detox Discharge Summary Admission Date: 06/06/17 Discharge Date: 06/12/17 - History Present History: Alcohol Dependence, Opioid Dependence Additional Comments: PATIENT WILL ATTEND OUTPATIENT SUBSTANCE USE TREATMENT PROGRAM (PATIENT CANNOT RECALL NAME AT THIS TIME) FOR AFTERCARE. PATIENT WAS DISCHARGED FROM DETOX UNIT IN STABLE MEDICAL CONDITION. Pertinent Past History: Hep C (Treated), Nicotine Dependence, Insomnia, Knee Pain. - Physical Exam Results Vital Signs: Vital Signs Temperature 98.3 F 06/12/17 06:51 Pulse Rate 64 06/12/17 06:51 Respiratory Rate 16 06/12/17 06:51 Blood Pressure 110/73 06/12/17 06:51 O2 Sat by Pulse Oximetry (%) Pertinent Admission Physical Exam Findings: WITHDRAWAL SYMPTOMS. Laboratory Tests 06/07/17 06/07/17 06/07/17 07:00 07:00 07:00 WBC 6.5 RBC 3.92 L Hgb 11.4 L Hct 35.8 MCV 91.3 MCH 29.1 MCHC 31.9 L RDW 13.8 Plt Count 234 MPV 10.7 D Sodium 142 Potassium 4.4 Chloride 108 H Carbon Dioxide 29 Anion Gap 5 L BUN 16 D Creatinine 1.4 H Creat Clearance w eGFR 50.10 Random Glucose 112 H D Calcium 8.2 L Total Bilirubin 0.3 D AST 35 D ALT 39 Alkaline Phosphatase 127 H D Total Protein 7.0 Albumin 3.1 L Urine Color Urine Appearance Urine pH Ur Specific [place] Urine Protein Urine Glucose (UA) Urine Ketones Urine Blood Urine Nitrite Urine Bilirubin Urine Urobilinogen Ur Leukocyte Esterase RPR Titer Nonreactive HIV 1&2 Antibody Screen HIV P24 Antigen 06/07/17 06/10/17 07:00 15:00 WBC RBC Hgb Hct MCV MCH MCHC RDW Plt Count MPV Sodium Potassium Chloride Carbon Dioxide Anion Gap BUN Creatinine Creat Clearance w eGFR Random Glucose Calcium Total Bilirubin AST ALT Alkaline Phosphatase Total Protein Albumin Urine Color Ltyellow Urine Appearance Clear Urine pH 7.0 D Ur Specific [place] 1.013 Urine Protein Negative Urine Glucose (UA) Negative Urine Ketones Negative Urine Blood Negative Urine Nitrite Negative Urine Bilirubin Negative Urine Urobilinogen 2.0 Ur Leukocyte Esterase Negative RPR Titer HIV 1&2 Antibody Screen Negative HIV P24 Antigen Negative LABS NOTED. - Treatment Hospital Course: Detox Protocol Followed, Detoxed Safely, Responded well, Discharged Condition Good Patient has Accepted a Rehab Referral to: PT WILL ATTEND OUTPATIENT SUPPORT GROUP PROGRAM FOR AFTERCARE. - Medication Discharge Medications: Ambulatory Orders NK [No Known Home Medication] 03/09/16 - Diagnosis (1) Alcohol dependence with uncomplicated withdrawal Status: Acute (2) Insomnia Status: Acute Qualifiers: Insomnia type: unspecified Qualified Code(s): G47.00 - Insomnia, unspecified (3) Nicotine dependence Status: Acute Qualifiers: Nicotine product type: cigarettes Substance use status: in withdrawal Qualified Code(s): F17.213 - Nicotine dependence, cigarettes, with withdrawal (4) Opioid dependence with withdrawal Status: Acute - AMA Did Patient Leave Against Medical Advice: No
== END 2017-06-12 09:32 | disposition home or self-care (01) | DRG 897 ==
LOC: YASAS 22:05 → Y3N 22:42
PROVIDERS: ADMIT Internal Medicine; ATTEND Internal Medicine
PROC: HZ2ZZZZ Detoxification Services for Substance Abuse Treatment (ICD-10-PCS; principal; 2017-06-06)
DX: F11.23 Opioid dependence with withdrawal (principal); F10.230 Alcohol dependence with withdrawal, uncomplicated; F17.210 Nicotine dependence, cigarettes, uncomplicated; G47.00 Insomnia, unspecified; M25.561 Pain in right knee; M25.562 Pain in left knee; R26.89 Other abnormalities of gait and mobility; Z99.89 Dependence on other enabling machines and devices; Z59.0 Homelessness
CPT/HCPCS: 36415; 71046-TC; 80053; 81003; 85027; 86593; 87389; 90688; 90732; 93005; 93010; G0009